=== PATIENT | male | born 1970 | race Caucasian/White ===

== ENCOUNTER → 2020-09-17 | Outpatient (CLI) | payer OTHER ==
[~2020-09-17] MED LIST: BENICAR HCT 12.1 TAB PO; FLEXERIL10 MG PO; MOTRIN800 MG PO; NO HOME MEDICATIONS; NORCO 325 MG-51 TAB PO; PROTONIX 40MG T40 MG PO; VICODIN 5/5001 UDTAB PO
== END ==
LOC: EDSTATUS 08:45 → SDCO 08:45 → ZCOL.LAB 12:00
DX: K21.9 Gastro-esophageal reflux disease without esophagitis (principal); J02.9 Acute pharyngitis, unspecified; Z85.038 Personal history of other malignant neoplasm of large intestine

== ENCOUNTER 2020-11-19 08:32 | Day surgery (SDC) | payer OTHER ==
[~2020-11-19] VITALS: Ht 182.9 cm; Wt 95.7 kg
[~2020-11-19 08:32] MED LIST changes: -BENICAR HCT 12.1 TAB PO; -PROTONIX 40MG T40 MG PO
[2020-11-19 09:22] VITALS: BP 115/79; PULSE 74; TEMP 98.2
[2020-11-19] MEDS ORDERED: PROTONIX 40MG T40 MG PO (09:34)
[2020-11-19] MEDS ORDERED: BENICAR HCT 12.1 TAB PO (09:34)
[2020-11-19 10:35] VITALS: BP 103/69; PULSE 74; TEMP 97.8
--- NOTE | 2020-11-19 10:35 | NUR ---
TRANSPORTED BY CART FROM [facility] TO [facility] ACCOMPANIED BY A NURSE, ASSISTED TO A RECLINER W/ STANDBY ASSIST, MONITORS ON AND ALARMS SET, SPOUSE IN THE ROOM, DENIES NAUSEA OR PAIN, CALL LIGHT IN REACH, REPORT RECEIVED FROM ELIZABETH LEDESMA, PATIENT REQUESTING JUICE AND MUFFIN TO EAT.
[2020-11-19 10:50] VITALS: BP 110/76; PULSE 87
--- NOTE | 2020-11-19 10:50 | NUR ---
TOLERATED FOOD AND DRINK W/O DIFFICULTY, DENIES DISCOMFORT
[2020-11-19 11:05] VITALS: BP 111/83; PULSE 64
--- NOTE | 2020-11-19 11:05 | NUR ---
DR CARUSO HERE TO SPEAK TO PATIENT ABOUT PROCEDURE, IV DC'D AND GAUZE WITH COBAN WRAPPED ON SITE, ABLE TO DRESS HIMSELF W/O DIFFICULTY, DISCHARGE INSTRUCTIONS REVIEWED W/ PATIENT AND SPOUSE, SPOUSE TAKEN TO LOBBY AND INSTRUCTED TO DRIVE VEHICLE TO OUTPATIENT ENTERENCE. PATIENT TAKEN BY WHEELCHAIR TO VEHICLE.
== END 2020-11-19 11:11 ==
LOC: SDCO 08:32
DX: Z12.11 Encounter for screening for malignant neoplasm of colon (principal); K22.2 Esophageal obstruction; K21.9 Gastro-esophageal reflux disease without esophagitis; D12.2 Benign neoplasm of ascending colon; D12.8 Benign neoplasm of rectum; I10 Essential (primary) hypertension; Z20.822 Contact with and (suspected) exposure to COVID-19; Z80.0 Family history of malignant neoplasm of digestive organs
CPT/HCPCS: C1726; J2704; J7120

== ENCOUNTER 2021-05-09 17:56 | Emergency (ER) | payer OTHER ==
[~2021-05-09] VITALS: Ht 185.4 cm; Wt 90.9 kg
[~2021-05-09 17:56] MED LIST changes: +BENICAR HCT 12.1 TAB PO; +PROTONIX 40MG T40 MG PO
[2021-05-09 18:20] VITALS: TEMP 99.2
[2021-05-09] MEDS ORDERED: ZOFRAN ODT4 MG PO (19:01)
[2021-05-09 19:22] VITALS: BP 113/77; PULSE 97
== END 2021-05-09 19:22 | disposition home or self-care (01) ==
LOC: COL.ER 17:56
DX: U07.1 COVID-19 (principal)

== ENCOUNTER → 2024-02-15 | Outpatient (CLI) | payer OTHER ==
[~2024-02-15] MED LIST changes: +Gadoterate 20 ML VIAL IV ONE; +ZOFRAN ODT4 MG PO
== END ==
LOC: COL.RAD 12:46
DX: R20.2 Paresthesia of skin (principal); R79.89 Other specified abnormal findings of blood chemistry; R26.89 Other abnormalities of gait and mobility; R53.83 Other fatigue
CPT/HCPCS: A9575